=== PATIENT | male | born 1945 | race Caucasian/White ===

== ENCOUNTER → 2016-11-20 | Day surgery (SDC) | payer OTHER ==
[2016-11-07 07:49] VITALS: BMI 26.0
[~2016-11-20] VITALS: Ht 175.3 cm; Wt 80.9 kg
[~2016-11-20] MED LIST: AMLO10TA2 PO; ASPI325T39 PO; ATOR-54 PO; FENTANYL CITRATE INJ 50 MCG/1 ML 2 ML VIAL ONE; GLYC1TAB18 PO; LIDOCAINE HCL 2% 2 ML VIAL (20MG/ML) ONE; OMEG10007 PO; PARO1TAB27 PO; PEDICHW50 PO; PROPOFOL IV EMULSION 10 MG/ML 20 ML VIAL IV ONE; SODIUM CHLORIDE 0.9% 500ML 500 ML IV ONE; [UNRECOGNIZED DRUG - REMARK] OPR
[2016-11-20 14:10] VITALS: Ht 175.3 cm; Wt 80.9 kg
[2016-11-20 14:20] VITALS: TEMP 36.4
--- NOTE | 2016-11-20 14:31 | Endo History and Physical ---
History & Physical Date of Service: Nov 20, 2016. Chief Complaint: screening for colon cancer Referring Physician: Dr. De La Torre History of Present Illness 71 yo CM who presents for screening colonoscopy. Past Surgical History Hx Cardiac Surgery: No Hx Internal Defibrillator: No Hx Pacemaker: No Hx Abdominal Surgery: No Hx of Implantable Prosthesis: No Hx Post-Op Nausea and Vomiting: No Hx Cancer Surgery: Yes (PROSTATECTOMY) Hx Thoracic Surgery: No Hx Orthopedic: No Hx Urinary Tract Surgery: No Family History Colon CA Social History Smoking Status: Former Smoker Hx Substance Use: No Hx Alcohol Use: Yes (1 CASE BEER/WEEK) Allergies Coded Allergies: Sulfa Drugs (Verified Allergy, Unknown, GLOSSITIS AND DROOLING, 11/07/16) Current Medications Reported Home Medications Medications Dose Route/Sig Max Daily Dose Days Date Category Flintstones Chewable (Pediatric Multiple Vitamin W/) 1 Chw Chw 1 Tab PO QAM 11/07/16 Reported [Eye Pressure Drugs] 1 Drop OPR DAILY 11/07/16 Reported [Eye Pressure Drugs] 1 Drop OPR BID 11/07/16 Reported Norvasc (Amlodipine Besylate) 10 Mg Tab 10 Mg PO QAM 11/07/16 Reported [place]-3 (Fish Oil) 1 Ea Cap 1 Cap PO QAM 06/23/14 Reported Lipitor (Atorvastatin) 20 Mg Tab 20 Mg PO HS 08/04/13 Reported Glycopyrrolate 2 Mg Tab 1 Tab PO QID PRN 08/04/13 Reported Aspirin Ec (Aspirin) 325 Mg Tab 325 Mg PO QAM 08/04/13 Reported Paxil (Paroxetine HCl) 20 Mg Tab 20 Mg PO QAM 08/04/13 Reported Vital Signs Weight (Kilograms): 80.91 Height (Feet): 5 Height (Inches): 9 Date Time Temp Pulse Resp B/P Pulse Ox O2 Delivery O2 Flow Rate FiO2 11/20/16 14:20 36.4 65 20 146/88 95 Room Air Physical Exam General Appearance: WD/WN, no apparent distress Respiratory/Chest: Auscultation: breath sounds normal Cardiovascular: Heart Auscultation: RRR Abdomen: Bowel Sounds: normal Inspection & Palpation: soft, non-distended, no tenderness, guarding & rebound Assessment and Plan Assessment: 71 yo CM who presents for screening colonoscopy. Plan: Proceed with colonoscopy.
--- NOTE | 2016-11-20 15:36 | Discharge Instructions ---
Endoscopy Patient Instructions Date / Procedure(s) Performed Nov 20, 2016. Colonoscopy Allergy Information Coded Allergies: Sulfa Drugs (Verified Allergy, Unknown, GLOSSITIS AND DROOLING, 11/07/16) Discharge Date / Findings Nov 20, 2016. Diverticulosis Internal hemorrhoids Medication Instructions OK to resume all medications today as prescribed Reported Home Medications Medications Dose Route/Sig Max Daily Dose Days Date Category Flintstones Chewable (Pediatric Multiple Vitamin W/) 1 Chw Chw 1 Tab PO QAM 11/07/16 Reported [Eye Pressure Drugs] 1 Drop OPR DAILY 11/07/16 Reported [Eye Pressure Drugs] 1 Drop OPR BID 11/07/16 Reported Norvasc (Amlodipine Besylate) 10 Mg Tab 10 Mg PO QAM 11/07/16 Reported [place]-3 (Fish Oil) 1 Ea Cap 1 Cap PO QAM 06/23/14 Reported Lipitor (Atorvastatin) 20 Mg Tab 20 Mg PO HS 08/04/13 Reported Glycopyrrolate 2 Mg Tab 1 Tab PO QID PRN 08/04/13 Reported Aspirin Ec (Aspirin) 325 Mg Tab 325 Mg PO QAM 08/04/13 Reported Paxil (Paroxetine HCl) 20 Mg Tab 20 Mg PO QAM 08/04/13 Reported Provider Instructions Activity Restrictions - No exercising or heavy lifting for 24 hours. - Do not drink alcohol the day of the procedure. - Do not drive a car or operate machinery until the day after the procedure. - Do not make any important decisions or sign important papers in 24 hours after the procedure. Following Day: - Return to full activity which may include returning to work/school. Diet Start your diet with liquids and light foods (jello, soup, juice, toast). Then eat your usual diet if not nauseated. Treatment For Common After Affects For mild abdominal pain, bloating, or excessive gas: - Rest - Eat lightly - Lie on right side Follow-Up Information Follow-up with Dr. De La Torre as scheduled Anesthesia Information What You Should Know You have had a procedure that required some medicine to reduce anxiety and discomfort. This treatment is called moderate sedation. After receiving the treatment, you may be sleepy, but you will be able to breathe on your own. The effects of the treatment may last for several hours. Follow these instructions along with Activity/Diet recommendations noted above: * Do NOT do anything where dizziness or clumsiness would be dangerous. * Rest quietly at home today, then you can be up and about tomorrow. * Have a responsible person stay with you the rest of today. * You may have had an I.V. today. If so, you may take the dressing off later today. Recommendations Call your doctor if: * Trouble breathing * Continuous vomiting for more than 24 hours * Temperature above 101 degrees * Severe abdominal pain or bloating * Pain not relieved by pain medicine ordered * There is increased drainage or redness from any incision * A large amount of rectal bleeding greater than 2-3 tablespoons. (If you had a polyp/s removed or have hemorrhoids, a small amount of blood - from the rectum is to be expected.) * You have any unanswered questions or concerns. IN THE EVENT OF A SERIOUS EMERGENCY, GO TO THE NEAREST EMERGENCY ROOM Your discharge instructions were prepared by provider Brodie Harmon. Patient Instructions Signature Page Marco A Pham Patient (or Guardian) Signature/Date: I have read and understand the instructions given to me by my caregivers. Caregiver/RN/Doctor Signature/Date: The above-named patient and/or guardian has received patient instructions on this date. + Original Patient Signature Page (only) stays with chart. Please make copy for patient.
--- NOTE | 2016-11-20 15:43 | GI REPORT ---
Procedure Date: 11/20/2016 2:50 PM Procedure: Colonoscopy Indications: Screening for colorectal malignant neoplasm Medicines: Monitored Anesthesia Care Complications: No immediate complications. Estimated Blood Loss: Estimated blood loss: none. Procedure: Pre-Anesthesia Assessment: - Prior to the procedure, a History and Physical was performed, and patient medications and allergies were reviewed. The patient's tolerance of previous anesthesia was also reviewed. The risks and benefits of the procedure and the sedation options and risks were discussed with the patient. All questions were answered, and informed consent was obtained. Prior Anticoagulants: The patient has taken no previous anticoagulant or antiplatelet agents. ASA Grade Assessment: II - A patient with mild systemic disease. After reviewing the risks and benefits, the patient was deemed in satisfactory condition to undergo the procedure. After I obtained informed consent, the scope was passed under direct vision. Throughout the procedure, the patient's blood pressure, pulse, and oxygen saturations were monitored continuously. The scope was introduced through the anus and advanced to the terminal ileum. The colonoscopy was performed without difficulty. The patient tolerated the procedure well. The quality of the bowel preparation was good. The terminal ileum, ileocecal valve, appendiceal orifice, and rectum were photographed. Findings: Multiple small-mouthed diverticula were found in the sigmoid colon. Non-bleeding internal hemorrhoids were found during retroflexion. The hemorrhoids were small. Impression: - Diverticulosis in the sigmoid colon. - Non-bleeding internal hemorrhoids. - No specimens collected. Recommendation: - Resume previous diet. - Continue present medications. - No repeat colonoscopy due to age and the absence of advanced adenomas. - Return to primary care physician as previously scheduled. Brodie Harmon, 11/20/2016 3:43:03 PM This report has been signed electronically. Note Initiated On: 11/20/2016 2:50 PM I attest to the content of the Intraoperative Record and orders documented therein, exceptions below
[2016-11-20 16:02] VITALS: BP 156/70; PULSE 64; O2SAT 98
--- NOTE | 2016-11-20 20:09 | Anesthesiology Progress Note ---
Anesthesia Post Op Note Date & Time Nov 20, 2016 at 20:09 Vital Signs Pain Intensity: 0 Vital Signs Past 12 Hours Date Time Temp Pulse Resp B/P Pulse Ox O2 Delivery O2 Flow Rate FiO2 11/20/16 16:02 64 20 156/70 98 Room Air 11/20/16 15:47 62 20 138/72 97 Room Air 11/20/16 15:27 63 20 112/65 97 Room Air 11/20/16 14:20 36.4 65 20 146/88 95 Room Air Notes Mental Status: alert / awake / arousable, participated in evaluation Pt Amnestic to Procedure: Yes Nausea / Vomiting: adequately controlled Pain: adequately controlled Airway Patency, RR, SpO2: stable & adequate BP & HR: stable & adequate Hydration State: stable & adequate Anesthetic Complications: no major complications apparent
== END | disposition home or self-care (01) ==
LOC: C.GI 14:03
PROVIDERS: ATTEND Internal Medicine
DX: Z12.11 Encounter for screening for malignant neoplasm of colon (principal); K57.30 Diverticulosis of large intestine without perforation or abscess without bleeding; K64.8 Other hemorrhoids; Z98.890 Other specified postprocedural states; Z88.0 Allergy status to penicillin; Z88.2 Allergy status to sulfonamides; Z79.82 Long term (current) use of aspirin

== ENCOUNTER → 2017-01-16 | Outpatient (CLI) | payer OTHER ==
[~2017-01-16] MED LIST changes: -FENTANYL CITRATE INJ 50 MCG/1 ML 2 ML VIAL ONE; -GLYC1TAB18 PO; +GLYC2TAB16 PO; -LIDOCAINE HCL 2% 2 ML VIAL (20MG/ML) ONE; -PROPOFOL IV EMULSION 10 MG/ML 20 ML VIAL IV ONE; -SODIUM CHLORIDE 0.9% 500ML 500 ML IV ONE
[2017-01-16 11:01] LABS: BASO % 0.5 %; BASO ABS # 0.02 K/uL (0-0.2); COMPLETE YES; EOS % 7.5 %; HEMATOCRIT 39.9 % (42-52); LYMPH % 23.5 %; LYMPH ABS # 0.87 K/uL (1.2-3.4); MEAN CELL VOLUME 95.2 fL (80-100); MEAN CORPUSCULAR HEMOGLOBIN 31.7 pg (25-34); MEAN CORPUSCULAR HGB CONC 33.3 g/dl (32-36); MEAN PLATELET VOLUME 10.6 fL (7.4-10.4); MONO % 8.6 %; NEUT % 59.9 %; PLATELET COUNT 179 K/uL (130-400); RED BLOOD COUNT 4.19 M/uL (4.7-6.1); WHITE BLOOD COUNT 3.71 K/uL (4.8-10.8)
[2017-01-16 11:14] LABS: CALCIUM 9.4 mg/dl (8.5-10.1)
[2017-01-16 11:20] LABS: ALT/SGPT 37 U/L (12-78); AST/SGOT 27 U/L (15-37); BLOOD UREA NITROGEN 17 mg/dl (7-18); BUN/CREATININE RATIO 17.2 (10-20); CARBON DIOXIDE 30 mmol/L (21-32); CHLORIDE 107 mmol/L (98-107); CHOLESTEROL 185 mg/dl (0-200); CREATININE 0.97 mg/dl (0.60-1.40); GLUCOSE 91 mg/dl (70-99); POTASSIUM 4.2 mmol/L (3.5-5.1); SODIUM 142 mmol/L (136-145); TRIGLYCERIDES 91 mg/dl (0-150); VERY LOW DENSITY LIPOPROT CALC 18 mg/dl
[2017-01-16 11:25] LABS: CHOLESTEROL/HDL RATIO 3.2; HDL CHOLESTEROL 58 mg/dl; LDL CHOLESTEROL CALCULATED 109 mg/dl; PROSTATE SPECIFIC ANTIGEN < 0.010 ng/ml (0.000-4.000)
== END | disposition home or self-care (01) ==
LOC: C.LABBC 07:41
PROVIDERS: ATTEND Urology
DX: E78.5 Hyperlipidemia, unspecified (principal); D64.9 Anemia, unspecified; I10 Essential (primary) hypertension; Z85.46 Personal history of malignant neoplasm of prostate

== ENCOUNTER → 2017-03-21 | Outpatient (CLI) | payer OTHER ==
[~2017-03-21] MED LIST changes: +GLYC1TAB18 PO; -GLYC2TAB16 PO
[2017-03-21 15:46] LABS: URINE APPEARANCE CLEAR (CLEAR); URINE BILIRUBIN NEG (NEG); URINE COLOR YELLOW; URINE EPITHELIAL CELL AUTO 0-5 /lpf (0-5); URINE NITRITE NEG (NEG); URINE SPECIFIC GRAVITY 1.007 (1.000-1.030); UROBILINOGEN NEG (NEG); ZZUR CULT IF INDIC CLEAN CATCH NO
[2017-03-21 15:48] LABS: MANUAL MICROSCOPIC REQUIRED? NO; REVIEW REQ? NO
== END | disposition home or self-care (01) ==
LOC: C.LABSPEC 15:26
PROVIDERS: ATTEND Physician Assistant
DX: R39.9 Unspecified symptoms and signs involving the genitourinary system (principal)

== ENCOUNTER → 2017-07-24 | Outpatient (CLI) | payer OTHER ==
[~2017-07-24] MED LIST changes: -GLYC1TAB18 PO; +GLYC2TAB16 PO
== END | disposition home or self-care (01) ==
LOC: C.LABBC 10:00
PROVIDERS: ATTEND Physician Assistant Medical
DX: C61 Malignant neoplasm of prostate (principal)

== ENCOUNTER → 2017-08-15 | Outpatient (CLI) | payer OTHER ==
[2017-08-15 07:55] VITALS: BP 132/78; PULSE 60; TEMP 36.6; O2SAT 96
--- NOTE | 2017-08-15 11:03 | Radiation Oncology Follow-Up ---
Radiation Oncology Follow-Up Date of Visit Aug 15, 2017. Reason For Visit Annual follow-up Radiation Completion Date Hormonal suppression;Radiation 11/15/13 Diagnosis (1) Prostate cancer Status: Resolved Onset Date: 01/24/2003 Location: both lobes of the prostate Histology Subtype: adenocarcinoma Stage: ll Permanent Comment: Rising PSA to 14.99 Biopsy revealing adenocarcinoma the prostate, clinical stage TIc Biopsy stage TIIc [place] grade 3+3 status post radical prostatectomy 04/28/2003 [place] grade 3+4 PSA dropped to undetectable Rising PSA in 2010 slow rise to 0.74 1 injection of Lupron lasting 90 days Status post completion of salvage radiation therapy 11/15/2013 received 7000 cGy Last Edited By: Nancy Jimenez on Jun 28, 2015 16:59 Interim History Over this past year he did develop a problem with dysuria. It occurred over a three-month time. He saw Dr. Connolly. He did undergo cystoscopy. This revealed changes from radiation. This has greatly improved. When the pain occurred he gave a pain level of 3. Today he gave an AUA score of 2. He completed and expanded prostate cancer index composite for clinical practice and gave a score of 0 of 12 urinary incontinence symptoms. He gave a score of 3 of 12 urinary irritation symptoms. He gave a score of 0 of 12 and bowel symptoms. He gave a score of 5 of 12 in sexual symptoms. He gave a score of 0 of 12 and hormonal vitality symptoms. His total was 8 of 60. He has had recheck PSAs. These have been all less than 0.010 since 2013. The most recent evaluation was 07/24/2017. Allergies Coded Allergies: Sulfa Drugs (Verified Allergy, Unknown, GLOSSITIS AND DROOLING, 11/07/16) Home Medications Scheduled Amlodipine Besylate (Norvasc), 10 MG PO QAM Aspirin (Aspirin Ec), 325 MG PO QAM Atorvastatin (Lipitor), 20 MG PO HS Fish Oil ([place]-3), 1 CAP PO QAM Paroxetine (Paxil), 20 MG PO QAM Pediatric Multiple Vitamin W/ (Flintstones Chewable), 1 TAB PO QAM [Eye Pressure Drugs], 1 DROP OPR BID [Eye Pressure Drugs], 1 DROP OPR DAILY Scheduled PRN Glycopyrrolate (Glycopyrrolate), 1 TAB PO QID PRN for Pain Review of Systems Gastrointestinal: Symptoms: WNL GI Comments: No fiber supplements; Oral: Symptoms: No Problems Respiratory: Symptoms: WNL Urinary: Symptoms: WNL Comments: 1 void/night; Skin: Symptoms: No Problems Physical Exam Vital Signs Date Time Temp Pulse Resp B/P (MAP) Pulse Ox O2 Delivery O2 Flow Rate FiO2 08/15/17 07:55 36.6 60 12 132/78 96 Fatigue: None General Appearance: no apparent distress Eyes: normal inspection, EOMI ENT: normal ENT inspection, hearing grossly normal Respiratory/Chest: lungs clear, no respiratory distress, no accessory muscle use Cardiovascular: regular rate, rhythm, no gallop, no murmur Abdomen: non tender, soft, no organomegaly Extremities: no pedal edema Neurologic/Psychiatric: no motor/sensory deficits, alert, normal mood/affect Skin: warm/dry Pain Management Patient Reports Pain: No Pain Management Plan He currently denies pain. He did have intermittent dysuria. If this recurs he is going to take [id number] AZO. Laboratory Laboratory Results: were reviewed Laboratory Comments: Reviewed in the interim history. Assessment & Plan Plan: Continue regular follow-up and PSAs. He'll see Dr. Connolly and have a PSA in 6 months. We asked him to return to our office in 1 year. An order was written to have a PSA prior to that visit. He was instructed to use over-the- counter AZO should he have any recurrence of the dysuria. He may call our office if he has new questions or concerns in the interim. Total Time In Follow-Up I spent 20 minutes speaking to the patient performing examination. I spent 15 minutes reviewing information in completing this note. Copy To Lui Connolly MD; Pro,Alli Ponce M.D.
== END | disposition home or self-care (01) ==
LOC: C.ONC 07:52
PROVIDERS: ATTEND Physician Assistant Medical
DX: Z08 Encounter for follow-up examination after completed treatment for malignant neoplasm (principal); Z92.3 Personal history of irradiation; Z85.46 Personal history of malignant neoplasm of prostate

== ENCOUNTER → 2017-09-03 | Outpatient (CLI) | payer OTHER | END | disposition home or self-care (01) | LOC: C.PATHSPEC 17:09 | PROVIDERS: ATTEND Urology | DX: R31.0 Gross hematuria (principal) ==

== ENCOUNTER → 2017-11-12 | Outpatient (CLI) | payer OTHER ==
[2017-11-12 13:55] LABS: BLOOD UREA NITROGEN 17 mg/dl (7-18); CREATININE 0.92 mg/dl (0.60-1.40)
== END | disposition home or self-care (01) ==
LOC: C.LABBC 09:35
PROVIDERS: ATTEND Urology
DX: R31.0 Gross hematuria (principal)

== ENCOUNTER → 2017-11-21 | Outpatient (CLI) | payer OTHER ==
[~2017-11-21] MED LIST changes: +OPTIRAY 320 IV PRN
--- NOTE | 2017-11-24 09:30 | DIAGNOSTIC IMAGING REPORT ---
ABD/PELVIS COMBO CLINICAL HISTORY: 72 years-old Male presenting with R31.0 Gross [id number], prostate cancer post radiation. TECHNIQUE: Multidetector CT of the abdomen and pelvis was performed before and after the administration of intravenous contrast. IV contrast: 94 mL of Optiray 320. A dose lowering technique was used consistent with the principles of ALARA (as low as reasonably achievable). COMPARISON: 07/12/2013. CT DOSE (mGy.cm): The estimated cumulative dose is 677.52 mGy.cm. FINDINGS: Emergency Physician topogram: Surgical clips project over the pelvis. Lung bases: Lungs and pleural spaces clear. Normal heart size. Coronary artery calcification. No pericardial or pleural effusion. Liver: Normal morphology. Normal density. No focal lesion. Patent hepatic vasculature. Biliary: No intrahepatic or extrahepatic biliary ductal dilatation. Normal gallbladder. Pancreas: Mild parenchymal atrophy. Spleen: Normal. Adrenal glands: Normal. Kidneys and ureters: Subcentimeter hypodensities in the kidneys likely cysts though slightly increased in size from prior exam. Motion artifact slightly degrades evaluation of the kidneys and cysts. No convincing evidence of a solid renal mass. No hydronephrosis. No nephrolithiasis. No filling defects within the urinary collecting systems. 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 Bladder: Mild circumferential bladder wall thickening likely indicating prior chronic outlet obstruction. Pelvic organs: The patient is status post prostatectomy. No abnormal nodular enhancing soft tissue in the operative bed or at the ureteral anastomosis. Bowel: Diverticulosis of the sigmoid colon. No pericolonic inflammatory change. The appendix is normal. No bowel obstruction. Peritoneal cavity: No free fluid or intraperitoneal gas. Lymph nodes: No enlarged lymph nodes in the abdomen or pelvis. Vasculature: Atherosclerosis of the normal caliber abdominal aorta. IVC patent. Abdominal wall: Small fat-containing inguinal hernias greater on the left. Musculoskeletal: Degenerative changes of the spine. Degenerative changes of the sacroiliac joints and pubic symphysis. IMPRESSION: 1. No evidence of solid renal or urothelial mass. Multiple renal cysts. No nephrolithiasis or hydronephrosis. 2. Circumferential bladder wall thickening likely indicates prior chronic bladder outlet obstruction. 3. Post surgical changes of prostatectomy without evidence of recurrent disease. No lymphadenopathy. 4. Diverticulosis. Electronically signed by: Valdo Rojas M.D. 11/21/2017 11:25 AM Dictated Date/Time: 11/21/2017 11:17 AM
== END | disposition home or self-care (01) ==
LOC: C.CTS 09:59
PROVIDERS: ATTEND Urology
DX: R31.0 Gross hematuria (principal); N28.1 Cyst of kidney, acquired; K57.90 Diverticulosis of intestine, part unspecified, without perforation or abscess without bleeding; Z90.79 Acquired absence of other genital organ(s)

== ENCOUNTER → 2017-12-10 | Outpatient (CLI) | payer OTHER ==
[~2017-12-10] MED LIST changes: -OPTIRAY 320 IV PRN
[2017-12-10 11:36] LABS: BASO % 0.9 %; BASO ABS # 0.03 K/uL (0-0.2); EOS ABS # 0.19 K/uL (0-0.5); HEMOGLOBIN 13.1 g/dL (14.0-18.0); LYMPH % 26.8 %; LYMPH ABS # 0.85 K/uL (1.2-3.4); MEAN CELL VOLUME 93.6 fL (80-100); MEAN CORPUSCULAR HEMOGLOBIN 32.3 pg (25-34); MEAN CORPUSCULAR HGB CONC 34.5 g/dl (32-36); MEAN PLATELET VOLUME 10.9 fL (7.4-10.4); MONO % 10.7 %; MONO ABS # 0.34 K/uL (0.11-0.59); NEUT % 55.6 %; NEUT ABS # 1.76 K/uL (1.4-6.5); PLATELET COUNT 169 K/uL (130-400); RED CELL DISTRIBUTION WIDTH CV 13.1 % (11.5-14.5); RED CELL DISTRIBUTION WIDTH SD 44.8 fL (36.4-46.3); WHITE BLOOD COUNT 3.17 K/uL (4.8-10.8)
[2017-12-10 11:56] LABS: ALT/SGPT 44 U/L (12-78); BLOOD UREA NITROGEN 13 mg/dl (7-18); CALCIUM 8.8 mg/dl (8.5-10.1); CARBON DIOXIDE 28 mmol/L (21-32); CHOLESTEROL 181 mg/dl (0-200); CREATININE 1.03 mg/dl (0.60-1.40); GLUCOSE 94 mg/dl (70-99); POTASSIUM 4.2 mmol/L (3.5-5.1); SODIUM 138 mmol/L (136-145)
[2017-12-10 12:01] LABS: ALKALINE PHOSPHATASE 50 U/L (45-117); AST/SGOT 32 U/L (15-37); LDL CHOLESTEROL CALCULATED 101 mg/dl; TOTAL PROTEIN 7.1 gm/dl (6.4-8.2)
== END | disposition home or self-care (01) ==
LOC: C.LABBC 07:38
PROVIDERS: ATTEND Internal Medicine
DX: E78.5 Hyperlipidemia, unspecified (principal); C61 Malignant neoplasm of prostate; I10 Essential (primary) hypertension; D64.9 Anemia, unspecified